=== PATIENT | male | born 1975 | race Caucasian/White ===

== ENCOUNTER 2020-01-14 18:08 | Emergency (ER) | payer BC ==
--- NOTE | 2020-01-14 19:49 | CT ---
CT OF THE LUMBAR SPINE: 01/14/[address] of the lumbar spine was done following trauma. The study covers from the mid T12 level thro ugh the upper sacrum. No fracture or dislocation was seen. The disc spaces are all normal in height. There is no central canal stenosis or significant foraminal stenosis at any of the lumbar levels. The patient does have bilateral pars defects at L5. Their appearance is more old than recent looking at the margins of the bones. No disc herniations of concern were seen. The visible portions of the SI ferdinand ints were unremarkable. IMPRESSION: 1. No acute fracture seen. 2. Bilateral pars detects of L5 without spondylolisthesis. Preliminary report called to Dr. Tavarez at [id number] on 01/14/20. POS: HOME
--- NOTE | 2020-01-14 19:57 | CT ---
CT OF THE CERVICAL SPINE 01/14/[address] of the cervical spine was done following trauma. There is loss of the normal cervical lordo sis. While this could be due to spasm, the patient has had a prior fusion procedure which could also be responsible. Anterior and posterior cervical fusion is evident at the C4, C5, C6 levels. There is laminectomy of C 4. The appearance of the hardware in this location was unremarkable. The soft tissues showed no thick ening. There is a little anterior bony spurring at C3-C4 and slight disc space narrowing here, as wel l as slight disc space narrowing at C6-C7. No focal disc herniations of concern were seen. There was no evidence of significant central canal or foraminal stenosis at the moment. The lung apices showed no pneumothorax. IMPRESSION: Postop cervical fusion changes at C4 through C6. No evidence of acute spinal injury. Preliminary report called to Dr. Tavarez at 1858 on 01/14/20. POS: HOME
== END 2020-01-14 19:35 | disposition home or self-care (01) ==
LOC: BURERS 18:08
DX: S16.1XXA Strain of muscle, fascia and tendon at neck level, initial encounter (principal); S39.012A Strain of muscle, fascia and tendon of lower back, initial encounter; V59.9XXA Occupant (driver) (passenger) of pick-up truck or van injured in unspecified traffic accident, initial encounter
CPT/HCPCS: 72125; 72131; G0390